=== PATIENT | male | born 1935 | race Caucasian/White ===

== ENCOUNTER 2017-02-27 19:49 | Emergency (ER) | payer MEDICARE, BC ==
[~2017-02-27 19:49] MED LIST: ASCRIPTIN; LISINOPRIL PO; PANTOPRAZOLE SO40 MG PO; ZANTAC PO
== END 2017-02-27 21:16 | disposition home or self-care (01) ==
LOC: SED 19:49
DX: S01.01XA Laceration without foreign body of scalp, initial encounter (principal); K21.9 Gastro-esophageal reflux disease without esophagitis; I10 Essential (primary) hypertension; Z23 Encounter for immunization; Z79.899 Other long term (current) drug therapy; W22.8XXA Striking against or struck by other objects, initial encounter; Y92.009 Unspecified place in unspecified non-institutional (private) residence as the place of occurrence of the external cause
CPT/HCPCS: 12001; 90471; 90715; 99283